=== PATIENT | female | born 1990 | race Caucasian/White ===

== ENCOUNTER 2020-12-01 13:20 | Emergency (ER) | payer OTHER, SELFPAY ==
[2020-12-01 13:30] VITALS: BP 113/61; PULSE 91; RESP 20; TEMP 36.4; O2SAT 99
--- NOTE | 2020-12-01 13:42 | ED.GENADULT ---
HPI - General Adult General Chief complaint: Ear Stated complaint: ear pain Source: patient Mode of arrival: ambulatory Limitations: no limitations History of Present Illness HPI narrative: Patient presents for evaluation of right-sided otalgia. Symptom onset yesterday. She has a history of recurrent ear infections. She is under the care of an ENT. She has been using ofloxacin otic preparation with minimal improvement in her symptoms or after. No tinnitus, hearing loss, drainage from the affected ear. Denies any fever, chills, nausea, vomiting, sore throat. No recent sick contacts. She does smoke approximately half a pack per day. No additional complaints or concerns. Related Data Home Medications Medication Instructions Recorded Confirmed acyclovir 12/01/20 Allergies Allergy/AdvReac Type Severity Reaction Status Date / Time No Known Drug Allergies Allergy Mild Verified 12/15/09 22:06 Review of Systems Review of Systems: Narrative: CONSTITUTIONAL: Denies fever, chills, or sweats. EYES: Denies visual changes, redness, or discharge. ENT: Denies rhinorrhea, congestion, sore throat. Reports right-sided otalgia without hearing loss, tinnitus, or drainage from the ear. CARDIOVASCULAR: Denies chest pain, palpitations, or edema. RESPIRATORY: Denies cough or dyspnea. GASTROINTESTINAL: Denies abdominal pain, nausea, vomiting, or diarrhea. GENITOURINARY: Denies dysuria or hematuria. SKIN: Denies rash or itching. MUSCULOSKELETAL: Denies back pain, joint pain, or myalgia. NEUROLOGIC: Denies headache, numbness, dizziness, or weakness. PSYCHIATRIC: Denies anxiety or depression. [facility] Family History Family History (Updated 02/20/15 @ 10:11 by DOCTOR UNKNOWN) Other Family history of malignant neoplasm Social History Social History Smoking status: Never smoker Second hand tobacco smoke exposure: No Alcohol intake: current Exam Narrative: Exam Narrative: GENERAL: Well-appearing, well-nourished, and in no acute distress. HEAD: Normocephalic, atraumatic. EYES: PERRLA and EOMI. ENT: Nares clear, no rhinorrhea or epistaxis. Mucous membranes moist. Oropharynx without tonsillar hypertrophy exudate or other lesions. Left TM has some opacification consistent with scarring from prior infections. There is no visible middle ear fluid or erythema noted. There is a significant amount of opacification noted to the right tympanic membrane with associated erythema. Opacity obstructs further visualization NECK: Supple. No adenopathy or masses. No carotid bruits or JVD CHEST: Clear to auscultation. No respiratory distress. No wheezes rales or rhonchi HEART: Regular rate and rhythm. No murmur heard. Normal peripheral pulses. ABDOMEN: Soft, nontender, nondistended, normal active bowel sounds. EXTREMITIES: Normal range of motion. No edema. SKIN: Warm, dry, no rash. NEURO: No focal deficits. Alert and oriented x3. PSYCH: Normal mood and affect. Course Course Emergency Course: This is a 30-year-old female with a history of recurrent ear infections who presents with 24-hour history of right-sided ear pain. She has a significant amount of scar tissue noted to the right TM. I cannot definitively exclude a diagnosis of otitis media. She is already using auto perforation which would treat otitis externa. Therefore we will add oral antibiotics. She states that current symptoms are consistent with those she has experienced in the past with otitis media. Therefore we will treat as such. Instructed to call ENT this coming week and return for any worsening symptoms. Vital Signs Vital signs: Vital Signs Temperature 36.4 C L 12/01/20 13:30 Pulse Rate 91 12/01/20 13:30 Respiratory Rate 20 12/01/20 13:30 Blood Pressure 113/61 12/01/20 13:30 Pulse Oximetry 99 12/01/20 13:30 Temperature 36.4 C L 12/01/20 13:30 Pulse Rate 91 12/01/20 13:30 Respiratory Rate 20 12/01/20 13:30 Blood Pressure 113/61
== END 2020-12-01 13:57 | disposition home or self-care (01) ==
PROVIDERS: Emergency Provider Nurse Practitioner; PCP Family Medicine
DX: H66.90 Otitis media, unspecified, unspecified ear (principal); F17.200 Nicotine dependence, unspecified, uncomplicated
CPT/HCPCS: 99203; G0463

== ENCOUNTER 2023-08-31 09:13 | Emergency (ER) | payer OTHER, SELFPAY ==
--- NOTE | 2023-08-31 09:15 | ED.EAR ---
HPI - Ear Problem General Chief complaint: Ear Stated complaint: Earache Time Seen by Provider: 08/31/23 09:15 Source: patient Mode of arrival: ambulatory Limitations: no limitations History of Present Illness HPI Narrative: Kasia is a 33-year-old female patient presenting to the clinic today with complaints of right sided earache that started last night. She reports no known fever or chills. History of chronic otitis media and chronic otitis externa Related Data Allergies Allergy/AdvReac Type Severity Reaction Status Date / Time No Known Allergies Allergy Verified 08/31/23 09:22 Review of Systems Review of Systems: Pertinent positives per HPI. Patient denies any fever, chills, rash, headache, visual changes, dizziness, cough, runny nose, sore throat, shortness of breath, chest pain, palpitations, nausea, vomiting, diarrhea, constipation, abdominal pain, or any urinary issues. [facility] Family History Family History Father Alcoholism Mother Breast cancer Grandparent Breast cancer Other Family history of malignant neoplasm Social History Social History Smoking packs per day: 1 Smoking cigarettes per day: 20.0 Smoking status: Current every day smoker Tobacco type: cigarettes Second hand tobacco smoke exposure: No Alcohol intake: current Substance use: never Substance use type: does not use Comments At the time of my signature, I reviewed and agree with the nursing past medical, surgical, social, and family history. There is no relevant family history pertinent to the patient complaint. Exam Narrative: General: Well-developed, well nourished, in no apparent distress Head: Normocephalic, atraumatic Eyes: Pupils equally round and reactive to light bilaterally, EOM intact, sclera and conjunctive clear, no discharge, lids normal Ears: Left TM intact, bulging, mild red, right TM bulging, opaque, and red with mucus noted behind the TM, ear canals clear, no drainage, grossly hearing normal. Nose: Nares patent, clear discharge, no inflammation, no sinus tenderness. Mouth: Oropharynx without lesions or masses, good dentition, MMM. Neck: Supple, trachea midline, no enlargement of anterior or posterior cervical nodes, no thyroid masses or goiter palpable. Cardio: Regular rate and rhythm, s1 and s2 normal, no murmur appreciated. Resp: Clear to auscultation bilaterally anteriorly and posteriorly, no rhonchi, rales, wheezing or rubs Course Course Emergency Course: Portions of this record may have been created with voice recognition software. Level of Care: Express Care Visit Vital Signs Vital signs: Vital signs reviewed Medical Decision Making MDM Narrative Medical decision making narrative: At the time of visit patient is resting comfortably on exam table. I suspect patient has right otitis media. Prescription for prednisone and Augmentin was sent to the pharmacy and supportive measures were discussed with the patient she voiced understanding discharge instructions and agrees to treatment plan. Differential Diagnosis Differential Diagnosis: Otitis media, otitis externa, eustachian tube dysfunction, cerumen impaction, serous otitis, upper respiratory infection Discharge Plan Discharge Clinical Impression: Acute right otitis media Patient Disposition: Home, Self-Care Condition: Stable Instructions: Antibiotic Form, Ear Infection (ED) Additional Instructions: Take any prescribed medications only as directed- prednisone and Augmentin Tylenol/motrin as needed for pain May use heating pad to alleviate pain If you get recurrent ear infections it may be warranted to follow up with ENT. Follow up with your PCP in 3-5 days if symptoms persist. Prescriptions: New amoxicillin-pot clavulanate 875-125 mg tablet 1 tablet PO Q12H 10 Days Qty: 20
[2023-08-31 09:20] VITALS: BP 111/73; PULSE 79; RESP 16; TEMP 36.3; O2SAT 100
== END 2023-08-31 09:31 | disposition home or self-care (01) ==
PROVIDERS: Emergency Provider Nurse Practitioner Family
DX: H66.91 Otitis media, unspecified, right ear (principal); F17.210 Nicotine dependence, cigarettes, uncomplicated
CPT/HCPCS: 99213; G0463

== ENCOUNTER 2024-10-07 11:44 | Emergency (ER) | payer OTHER, SELFPAY ==
[2024-10-07 12:30] VITALS: BP 112/70; PULSE 85; RESP 16; TEMP 36.8; O2SAT 100
--- NOTE | 2024-10-07 13:18 | ED.EAR ---
HPI - Ear Problem General Chief complaint: Ear Stated complaint: Ear Pain Time Seen by Provider: 10/07/24 13:18 Source: patient Mode of arrival: ambulatory Limitations: no limitations History of Present Illness HPI Narrative: 34-year-old female presents with complaint of bilateral ear pain. Started to left ear 2 days ago and now has a to right ear. Right ear pain is worse. Afebrile. Denies congestion. Patient reports history of chronic ear infections. Sees ENT. Has been placing ofloxacin drops with no change to symptoms. All systems reviewed and negative except as noted above. Related Data Allergies Allergy/AdvReac Type Severity Reaction Status Date / Time No Known Allergies Allergy Verified 10/07/24 12:46 Review of Systems Review of Systems: CONSTITUTIONAL: Denies fever, chills, or sweats. EYES: Denies visual changes, redness, or discharge. ENT: Denies rhinorrhea, congestion, sore throat. Reports bilateral ear pain CARDIOVASCULAR: Denies chest pain, palpitations, or edema. RESPIRATORY: Denies cough or dyspnea. GASTROINTESTINAL: Denies abdominal pain, nausea, vomiting, or diarrhea. GENITOURINARY: Denies dysuria or hematuria. SKIN: Denies rash or itching. MUSCULOSKELETAL: Denies back pain, joint pain, or myalgia. NEUROLOGIC: Denies headache, numbness, or weakness. PSYCHIATRIC: Denies anxiety or depression. All other systems reviewed are negative, except as documented in HPI. [facility] Past Medical History Medical History Impacted cerumen of both ears Family History Family History Father Alcoholism Mother Breast cancer Grandparent Breast cancer Other Family history of malignant neoplasm Social History Social History Smoking packs per day: 0.5 Smoking cigarettes per day: 10.0 Years smoked: 15 Smoking pack-years: 7.50 Smoking status: Current every day smoker Tobacco type: cigarettes Second hand tobacco smoke exposure: No Alcohol intake: never Substance use: never Substance use type: does not use Lack of Transportation: No Lack of Food: Never True Current Housing: I Have Housing Concerned About Future Housing: No Difficulty Paying Gas/Electric Bills: No Difficulty Paying for Meds: No Currently Unemployed: No Education: High School Diploma/GED Comments At time of signature, agree with nursing past medical, surgical, social and family history. There is no relevant family history pertinent to the presenting complaint. Exam Narrative: GENERAL: This is a well-nourished, well-developed patient, in no apparent distress. HEAD: normocephalic, atraumatic. EYES: PERRL. Sclera clear/white. Vision is grossly intact. EARS: External ears normal, auditory canals clear and without drainage, fluid to bilateral TMs with air bubbles, mild erythema, mild scarring. no bulging. Hearing grossly intact. NOSE: External nose normal with no obvious nasal discharge, nares without redness, no rhinorrhea. THROAT: Mucous membranes moist, posterior pharynx clear. NECK: Neck supple, non-tender without lymphadenopathy, masses or thyromegaly. CARDIOVASCULAR: Regular rate and rhythm without murmurs, gallops, or rubs. RESPIRATORY: Clear to auscultation. Breath sounds equal bilaterally. No wheezes, rales, or rhonchi. SKIN: warm, Dry, intact with no suspicious lesions or rash, good texture and turgor. NEURO: awake, alert, and oriented to person, place and time. There were no obvious focal neurologic abnormalities. EXTREMITIES: No joint tenderness, effusion, or edema noted. Course Course Level of Care: Express Care Visit Vital Signs Vital signs: Vital Signs Temperature 36.8 C 10/07/24 12:30 Pulse Rate 85 10/07/24 12:30 Respiratory Rate 16 10/07/24 12:30 Blood Pressure 112/70 10/07/24 12:30 Pulse Oximetry 100 10/07/24 12:30 Temperature 36.8 C 10/07/24 12:30 Pulse Rate 85 10/07/24 12:30 Respiratory Rate 16 10/07/24 12:30 Blood Pressure 112/70 10/07/24 12:30 Pulse Oximetry 100 10/07/24 12:30 Reviewed Medical Decision Making MDM Narrative Medical decision making narrative: Will prescribe antibiotic today for bilateral serous otitis media. Recommend patient follow-up with her ENT if pain is not improving. Patient is aware of diagnosis, understands and agrees to treatment plan. Anticipatory guidance given. Patient agrees to follow-up as directed and is aware of reasons to seek care at the emergency department. Portions of this record may have been created with voice recognition software Vital Signs Vital Signs: Vital Signs Temperature 36.8 C 10/07/24 12:30 Pulse Rate 85 10/07/24 12:30 Respiratory Rate 16 10/07/24 12:30 Blood Pressure 112/70 10/07/24 12:30 Pulse Oximetry 100 10/07/24 12:30 Temperature 36.8 C 10/07/24 12:30 Pulse Rate 85 10/07/24 12:30 Respiratory Rate 16 10/07/24 12:30 Blood Pressure 112/70 10/07/24 12:30 Pulse Oximetry 100 10/07/24 12:30 Discharge Plan Discharge Clinical Impression: Acute serous otitis media of both ears Patient Disposition: Home, Self-Care Condition: Stable Instructions: Antibiotic Form, Fluid In The Ear (Serous Otitis Media) (ED) Additional Instructions: Take antibiotic as prescribed until gone. Take ibuprofen or Tylenol every 6-8 hours as needed for pain. Follow-up with your research test engine operator if not improving. Prescriptions: New amoxicillin 875 mg tablet 875 mg PO Q12H 10 Days Qty: 20 0RF Follow-up/Referrals: PHYSICIAN,[employer]PERVISOR [Primary Care Provider] - Time of Disposition: 13:24
== END 2024-10-07 13:37 | disposition home or self-care (01) ==
PROVIDERS: Emergency Provider Nurse Practitioner Family
DX: H65.03 Acute serous otitis media, bilateral (principal); F17.210 Nicotine dependence, cigarettes, uncomplicated
CPT/HCPCS: 99213; G0463